=== PATIENT | female | born 1960 | race Caucasian/White ===

== ENCOUNTER → 2023-11-28 14:33 | Outpatient (REF) | payer OTHER, SELFPAY | LOC: RAD 14:33 | PROVIDERS: ATTENDING PHYSICIAN Physician Assistant | DX: M54.9 Dorsalgia, unspecified (principal); R07.89 Other chest pain | CPT/HCPCS: 71046 ==

== ENCOUNTER → 2024-05-08 10:39 | Outpatient (REF) | payer OTHER, SELFPAY | LOC: RAD 10:39 | PROVIDERS: ATTENDING PHYSICIAN Podiatrist Primary Podiatric Medicine; FAMILY PHYSICIAN Internal Medicine | DX: M79.675 Pain in left toe(s) (principal) | CPT/HCPCS: 73630 ==